=== PATIENT | male | born 1990 | race Caucasian/White ===

== ENCOUNTER 2020-04-15 18:29 | Emergency (ER) | payer OTHER ==
[~2020-04-15] VITALS: Ht 195.6 cm; Wt 117.7 kg
[2020-04-15] MEDS ORDERED: MULT-90 PO (18:39)
[2020-04-15] MEDS ORDERED: FAMOTIDINE INJ 20MG/2ML VIAL (S0028 PER 1) IVP ONE (19:00)
[2020-04-15] MEDS ORDERED: methylPREDNISolone 125MG 2ML VIAL IV ONE (19:00)
[2020-04-15 19:49] LABS: BASO % 0.1 % (0.0-1.0); EOS # 0.1 10^3/uL (0.0-0.5); EOS % 0.7 % (0.0-3.0); HEMATOCRIT 45.2 % (42.0-52.0); HEMOGLOBIN 16.3 g/dl (13.5-17.5); LYMPH # 1.5 10^3/uL (1.5-5.0); LYMPH % 13.9 % (24.0-44.0); MEAN CORPUSCULAR HEMOGLOBIN 30.5 pg (27.0-33.0); MEAN CORPUSCULAR HGB CONC 36.1 g/dl (32.0-36.5); MEAN CORPUSCULAR VOLUME 84.6 fl (80.0-96.0); MONO # 0.6 10^3/uL (0.0-0.8); MONO % 5.8 % (0.0-5.0); NEUTROPHILS # 8.5 10^3/uL (1.5-8.5); NEUTROPHILS % 79.2 % (36.0-66.0); PLATELET COUNT, AUTOMATED 264 10^3/uL (150-450); RED BLOOD COUNT 5.34 10^6/uL (4.30-6.10); WHITE BLOOD COUNT 10.7 10^3/uL (4.0-10.0)
[2020-04-15 20:12] LABS: BLOOD UREA NITROGEN 14 MG/DL (7-18); CALCIUM LEVEL 8.8 MG/DL (8.5-10.1); CARBON DIOXIDE LEVEL 26 MEQ/L (21-32); CHLORIDE LEVEL 103 MEQ/L (98-107); CREATININE FOR GFR 1.05 MG/DL (0.70-1.30); GLOMERULAR FILTRATION RATE > 60.0 (>60); GLUCOSE, FASTING 199 MG/DL (70-100); POTASSIUM SERUM 3.4 MEQ/L (3.5-5.1); SODIUM LEVEL 137 MEQ/L (136-145)
[2020-04-15] MEDS ORDERED: PRED20TA PO (20:49)
[2020-04-15] MEDS ORDERED: FAMO40TA3 PO (20:49)
[2020-04-15] MEDS ORDERED: BENA25CA4 PO (20:49)
[2020-04-15 21:01] VITALS: BP 144/83
== END 2020-04-15 21:03 | disposition home or self-care (01) ==
LOC: M ED 18:29
DX: R22.0 Localized swelling, mass and lump, head (principal); W57.XXXA Bitten or stung by nonvenomous insect and other nonvenomous arthropods, initial encounter; Y92.89 Other specified places as the place of occurrence of the external cause; Z91.030 Bee allergy status
CPT/HCPCS: 80048; 85025; 96374; 96375; 99283; J2930

== ENCOUNTER 2023-01-22 14:13 | Emergency (ER) | payer OTHER ==
[~2023-01-22] VITALS: Ht 195.6 cm; Wt 108.2 kg
[2023-01-22 14:13] VITALS: TEMP 97.3
[~2023-01-22 14:13] MED LIST: BENA25CA4 PO; FAMO40TA3 PO; MULT-90 PO; PRED20TA PO
[2023-01-22 15:19] LABS: HEMATOCRIT 49.5 % (42.0-52.0); HEMOGLOBIN 17.7 g/dl (13.5-17.5); MEAN CORPUSCULAR HEMOGLOBIN 29.8 pg (27.0-33.0); MEAN CORPUSCULAR HGB CONC 35.8 g/dl (32.0-36.5); MEAN CORPUSCULAR VOLUME 83.5 fl (80.0-96.0); PLATELET COUNT, AUTOMATED 259 10^3/uL (150-450); RED BLOOD COUNT 5.93 10^6/uL (4.30-6.10); WHITE BLOOD COUNT 4.1 10^3/uL (4.0-10.0)
[2023-01-22] MEDS ORDERED: NS 1,000 ML IV ONE (15:20)
[2023-01-22 15:32] LABS: ATYPICAL LYMPH 9 % (0-5); LYMPHOCYTES 28 % (16-44); MONOCYTES 6 % (0-5); NEUTROPHILS 56 % (28-66)
[2023-01-22 15:33] LABS: PLATELET ESTIMATE NORMAL (NORMAL)
[2023-01-22 15:35] LABS: ALBUMIN 4.3 G/DL (3.2-5.2); BILIRUBIN,DIRECT 0.2 MG/DL (<0.4); BILIRUBIN,TOTAL 0.6 MG/DL (0.3-1.2); MAGNESIUM LEVEL 1.8 MG/DL (1.8-2.4); TOTAL PROTEIN 7.3 G/DL (5.7-8.2)
[2023-01-22 18:14] VITALS: BP 141/66; O2SAT 98
== END 2023-01-22 18:16 | disposition home or self-care (01) ==
LOC: M ED 14:13
DX: R19.7 Diarrhea, unspecified (principal)